=== PATIENT | female | born 2000 | race Caucasian/White ===

== ENCOUNTER → 2018-06-12 10:41 | Outpatient (CLI) | payer MEDICAID, SELFPAY ==
[2018-06-12 09:49] VITALS: BMI 20.9
[2018-06-12 10:59] LABS: Absolute Lymphocyte Count 1.47 X10^3/ul (0.83-4.51); Absolute Neutrophil Count 6.4 X10^3/uL (2.0-7.7); Basophil# 0.03 X10^3/uL; Basophil% 0.4 % (0-1); Eosinophil# 0.06 X10^3/uL; Eosinophils% 0.7 % (0-5); Hematocrit 41.4 % (37-47); Hemoglobin 14.1 g/dl (12.0-15.0); Lymphocyte # 1.47 X10^3/ul (4.0); Lymphocyte % 17.3 % (19-41); Mean Corp Hgb Conc 34.1 g/gl (32-36); Mean Corpuscular Hgb 29.9 pg (27.0-32.0); Mean Corpuscular Volume 87.7 fL (81-99); Monocyte# 0.51 X10^3/uL; Neutrophil # 6.41 X10^3/uL (2.7-7.7); Neutrophil % 75.4 % (47-70); Platelet Count 235 K/mm3 (150-450); RBC Distribution Width CV 12.6 % (11.6-14.6); RBC Distribution Width SD 39.5 fl (35.1-43.9); Red Blood Count 4.72 M/mm3 (4.2-5.4); White Blood Count 8.5 K/mm3 (4.4-11.0)
[2018-06-12 11:00] LABS: POSITIVE COUNT NO; POSITIVE DIFFERENTIAL NO; POSITIVE MORPHOLOGY NO
[2018-06-12 12:32] LABS: HIV - WCH Non-Reactive (Nonreactive); Rubella IgG 8.2 IU/mL
[2018-06-12 19:18] LABS: Neisserai gonorrhoeae by PCR Negative (Negative); Probe Check PASS
[2018-06-12 19:20] LABS: Chlamydia Trachomatis by PCR POSITIVE (Negative)
[2018-06-13 13:16] LABS: HEPATITIS B SURFACE AG Negative (Negative)
[2018-06-14 02:05] LABS: Rapid Plasmin Reagin (RPR) NONREACTIVE (NONREACTIVE)
== END ==
PROVIDERS: Nurse Practitioner Women's Health; Referring Provider Obstetrics & Gynecology; Visit Provider Obstetrics & Gynecology
DX: Z34.90 Encounter for supervision of normal pregnancy, unspecified, unspecified trimester (principal)
CPT/HCPCS: 36415; 85025; 86592; 86703; 86762; 86850; 86900; 87086; 87088; 87340; 87491; 87591

== ENCOUNTER → 2018-06-24 16:15 | Outpatient (CLI) | payer MEDICAID, SELFPAY ==
[2018-06-24 14:13] VITALS: BMI 20.9
== END ==
PROVIDERS: Referring Provider Obstetrics & Gynecology; Visit Provider Obstetrics & Gynecology
DX: Z34.90 Encounter for supervision of normal pregnancy, unspecified, unspecified trimester (principal)
CPT/HCPCS: 87086; 87088

== ENCOUNTER → 2018-07-11 | Outpatient (CLI) | payer MEDICAID, SELFPAY ==
[2018-06-24 14:13] VITALS: BMI 20.9
== END | disposition home or self-care (01) ==
LOC: LAB 10:53
PROVIDERS: Referring Provider Obstetrics & Gynecology; Visit Provider Obstetrics & Gynecology
DX: Z31.430 Encounter of female for testing for genetic disease carrier status for procreative management (principal)
CPT/HCPCS: 36415

== ENCOUNTER → 2018-07-22 | Outpatient (CLI) | payer MEDICAID, SELFPAY ==
[2018-07-22 13:42] VITALS: BMI 20.9
[2018-07-22 17:12] LABS: Chlamydia Trachomatis by PCR Negative (Negative); Neisserai gonorrhoeae by PCR Negative (Negative); Probe Check PASS; Sample Adequacy Control PASS; Specimen Processing Control PASS
== END | disposition home or self-care (01) ==
LOC: LABSPEC 15:21
PROVIDERS: Referring Provider Nurse Practitioner Women's Health; Visit Provider Nurse Practitioner Women's Health
DX: O98.819 Other maternal infectious and parasitic diseases complicating pregnancy, unspecified trimester (principal); A74.9 Chlamydial infection, unspecified; Z3A.00 Weeks of gestation of pregnancy not specified
CPT/HCPCS: 87491; 87591

== ENCOUNTER → 2018-09-24 | Outpatient (CLI) | payer MEDICAID, SELFPAY ==
[2018-09-16 11:18] VITALS: BMI 20.9
--- NOTE | 2018-09-24 12:09 | EKG12_ITS ---
Test Reason : DIZZINESS Blood Pressure : / mmHG Vent. Rate : 082 BPM Atrial Rate : 082 BPM P-R Int : 138 ms QRS Dur : 084 ms QT Int : 350 ms P-R-T Axes : 045 068 020 degrees QTc Int : 408 ms Normal sinus rhythm Nonspecific ST and T wave abnormality Abnormal ECG Confirmed by JOHN PENA, SUMI ([id number]), subeditor BREANNE MCCRACKEN ([id number]) on 09/25/2018 12:22:55 PM Referred By: Katie Bates Confirmed By:SUMI LOPEZ MD
== END | disposition home or self-care (01) ==
LOC: PSN 12:09
PROVIDERS: Referring Provider Nurse Practitioner Women's Health; Visit Provider Nurse Practitioner Women's Health
DX: O26.899 Other specified pregnancy related conditions, unspecified trimester (principal); R00.2 Palpitations; Z3A.00 Weeks of gestation of pregnancy not specified
CPT/HCPCS: 93005

== ENCOUNTER 2018-10-03 12:41 | Emergency (ER) | payer MEDICAID, SELFPAY ==
[2018-09-16 11:18] VITALS: BMI 20.9
[2018-10-03 12:42] VITALS: BP 129/92; PULSE 101; RESP 18; TEMP 36.5; O2SAT 98; BMI 23.8
--- NOTE | 2018-10-03 13:18 | EKG12_ITS ---
Test Reason : CP Blood Pressure : / mmHG Vent. Rate : 097 BPM Atrial Rate : 097 BPM P-R Int : 136 ms QRS Dur : 084 ms QT Int : 328 ms P-R-T Axes : 044 059 003 degrees QTc Int : 416 ms Normal sinus rhythm Nonspecific T wave abnormality Abnormal ECG Confirmed by RUBÉN PENA, CELESTINO ([id number]), science editor BREANNE MCCRACKEN ([id number]) on 10/04/2018 12:09:44 PM Referred By: ASAF/EMY Confirmed By:CELESTINO MONTANA MD
--- NOTE | 2018-10-03 13:18 | RAD_ITS ---
STUDY: X-RAY CHEST REASON FOR EXAM: Female, 18 years old. Chest pain and shortness of breath. TECHNIQUE: Single AP portable view of the chest. COMPARISON: None. FINDINGS: EKG electrodes are seen. The lungs are clear and expanded. There is no demonstrated pleural abnormality. Normal size heart. Normal mediastinum and kody. Normal visualized pulmonary arteries. Normal visualized aortic arch and descending thoracic aorta. Normal visualized thoracic spine. Normal visualized ribs, clavicles, and shoulders. There is no demonstrated abnormality of the visualized soft tissue structures of the upper abdomen. RAD/Chest 1 View (Portable) IMPRESSION: Normal x-ray examination of the chest. Electronically Signed: Fernie Davies, at 13:42 EDT , Service support ,
--- NOTE | 2018-10-03 13:20 | ED.DCSUM_ITS ---
History of Present Illness Chief Complaint: Chest Pain Informant: Patient Onset: Weeks - 2 Activity at onset: Rest - seen random; mostly non-exertional Timing: Intermittent Quality: Heaviness Location: Substernal Current Severity: Gone Maximum Severity: Severe Worsened By: Movement of Arm. Not Worsened By: Breathing Relieved By: Nothing - goes away after 10-20 min spontaneously Associated Symptoms: Lightheadedness, Palpitations - beating hard and fast Narrative: Patient 25 weeks and has been having these episodes for the last couple weeks. She had an EKG that looked abnormal and was referred to cardiology, she has an appointment 1 week from today with Dr. Augustin and has not seen him yet. She has no known heart problems. No recent calf pain or unilateral edema although she occasionally gets some mild swelling in her feet that is not there now. Symptoms recurrent episodes. She has had some headaches off and on there have been mild. Episodes are associated with shortness of breath, lightheadedness and near syncope, she has had no loss of consciousness yet. Also diffuse blurry vision, no focal neurologic symptoms or abdominal discomfort. No vaginal bleeding. Still feeling the baby move which also makes her feel nauseated often. Has discussed with her OB. Prior Similar Symptoms: No PE Risk Factors: Negative for: Recent Travel/Surgery, Recenet Immobilization, Prior DVT or PE, Cancer, OCP + Smoking + >/=35 Past Medical History - Allergies and Home Meds Allergies/Adverse Reactions: Allergies No Known Allergies Allergy (Verified 10/03/18 12:45) Primary Care Physician: Chinyere Su MD [Primary Care Provider] - Past Medical History: None Lives: With Family Smoking Status: Never smoker Drugs: None Review of Systems General: Reports: Malaise - Episodically. Denies: Chills, Fever, Sweats Eyes: Reports: Blurred Vision - bilaterally. Denies: Diplopia ENT: Denies: Rhinorrhea, Sore throat Cardiovascular: Reports: Chest pain, Palpitations, Heart racing Respiratory: Reports: Dyspnea. Denies: Cough, Dyspnea on exertion Gastrointestinal: Reports: Nausea - Episodically. Denies: Abdominal pain, Vomiting, Diarrhea, Melena, Hematochezia Genitourinary: Denies: Dysuria, Hematuria, Frequency Musculoskeletal: Reports: Swelling - Intermittent, feet only. Denies: Back pain, Extremity Pain Skin: Denies: Rash, Wounds Neurological: Denies: Headache, Weakness, Numbness Physical Exam Vital Signs/Narrative: Vital Signs Temp Pulse Resp BP Pulse Ox 10/03/18 12:42 97.7 F L 101 H 18 129/92 H 98 Inital Vital Signs reviewed: Yes General: Well nourished, Well developed, No Acute Distress Head: Normocephalic, Atraumatic Eyes: Perrl, EOMI ENT: Moist mucous membranes, No rhinorrhea Neck: Supple, Nontender, No lymphadenopathy, No JVD Cardiovascular: Regular rate, Regular rhythm, No murmurs, Normal S1, Normal S2, Tachycardia - mild Respiratory: No distress, CTA bilaterally, Chest nontender Abdomen: Soft, Nontender, Normal bowel sounds, - - Gravid uterus, just above the umbilicus Back: Nontender, Normal Inspection. Negative for: CVA tenderness Extremities: Nontender, No edema. Negative for: Calf Tenderness Skin: Normal color, No rash, No Trauma Neurological: Alert, Oriented x3, Cranial nerves II-XII grossly intact, Normal Strength, Normal Sensation Psychological: Normal affect, Normal Mood Diagnostic/Tx/Re-eval Impressions Chest X-Ray 10/03/18 13:18 IMPRESSION: Normal x-ray examination of the chest. Electronically Signed: Fernie Davies at 13:42 EDT , Service support , Chest CTA 10/03/18 15:11 IMPRESSION: The contrast bolus is suboptimal for detecting small or distal pulmonary emboli. No large or central pulmonary emboli are seen. No acute pulmonary findings. Electronically Signed: Jorge Alberto Cordova MD at 16:51 EDT Tel , Service support , 10/03/18 13:18 Chest 1 View (Portable) [RAD] Stat 10/03/18 15:11 CTA Chest W/WO Contrast [CT] Stat Laboratory Results 10/03/18 10/03/18 10/03/18 12:58 12:58 12:58 WBC 9.8 RBC 3.94 L Hgb 12.2 Hct 35.7 L MCV 90.6 MCH 31.0 MCHC 34.2 RDW 13.1 RDW Differential 43.7 Plt Count 199 MPV 10.3 Immature Gran % (Auto) 1.000 H Neut % (Auto) 77.6 H Lymph % (Auto) 16.7 L [place] % (Auto) 4.0 Eos % (Auto) 0.6 Baso % (Auto) 0.1 Absolute Neuts (auto) 7.6 Absolute Lymphs (auto) 1.64 Total Counted Not Reportable D-Dimer Quant (PE/DVT) 0.80 H* Sodium 138 Potassium 3.4 L Chloride 106 Carbon Dioxide 24.0 Anion Gap 8 BUN 9 Creatinine 0.66 Estim Creat Clear Calc 132.22 Est GFR (MDRD) Af Amer 146 Est GFR (MDRD) Non-Af 121 BUN/Creatinine Ratio 13.6 Glucose 121 H Calcium 8.5 Total Bilirubin 0.30 AST 9 L ALT 12 L Alkaline Phosphatase 42 L Troponin I < 0.015 Total Protein 6.9 Albumin 3.2 Globulin 3.7 Albumin/Globulin Ratio 0.9 Urine Color Urine Clarity Urine pH Ur Specific [place] Urine Protein Urine Glucose (UA) Urine Ketones Urine Occult Blood Urine Nitrite Urine Bilirubin Urine Urobilinogen Ur Leukocyte Esterase Urine RBC Urine WBC Ur Squamous Epith Cells Urine Bacteria Urine Mucus 10/03/18 12:58 WBC RBC Hgb Hct MCV MCH MCHC RDW RDW Differential Plt Count MPV Immature Gran % (Auto) Neut % (Auto) Lymph % (Auto) [place] % (Auto) Eos % (Auto) Baso % (Auto) Absolute Neuts (auto) Absolute Lymphs (auto) Total Counted D-Dimer Quant (PE/DVT) Sodium Potassium Chloride Carbon Dioxide Anion Gap BUN Creatinine Estim Creat Clear Calc Est GFR (MDRD) Af Amer Est GFR (MDRD) Non-Af BUN/Creatinine Ratio Glucose Calcium Total Bilirubin AST ALT Alkaline Phosphatase Troponin I Total Protein Albumin Globulin Albumin/Globulin Ratio Urine Color Yellow Urine Clarity Clear Urine pH 6.0 Ur Specific [place] 1.015 Urine Protein Negative Urine Glucose (UA) Normal Urine Ketones 150 H Urine Occult Blood Negative Urine Nitrite Negative Urine Bilirubin Negative Urine Urobilinogen Normal Ur Leukocyte Esterase 25 H Urine RBC 0 SEEN Urine WBC 0-5 SEEN Ur Squamous Epith Cells 0-5 SEEN Urine Bacteria 1+ Urine Mucus 0 SEEN - Rhythm Strip Rhythm Strip: Sinus Rhythm Rate: 97 Ectopy: None - EKG Initial EKG Interpretation: Sinus Rhythm, No Acute Injury Pattern, Non-Specific ST Changes - Diffusely Prior: Unchanged - Medical Decision Making D-dimer was nonspecifically elevated, the rest of her labs are unremarkable, her blood pressure remained stable. No sign of preeclampsia here. Her EKG shows some lateral nonspecific T wave abnormalities, with no acute other abnormalities, this is similar to the EKG she had recently for which she was referred to cardiology. Given her elevated d-dimer and nonspecific nature of her thoracic symptoms, I thought it prudent to rule out pulmonary embolism, especially given her . We discussed risks and benefits of CT angiography, she was amenable to it, it was performed and showed no central PE although the IV contrast bolus was suboptimal and was unable to rule out a peripheral PE. With the degree of symptoms she has been having which is near syncope and racing heartbeat, my suspicion is that a pulmonary embolus and a larger vessel would be present if it was causing the symptoms. She had no telemetry events or other symptoms while in the emergency department. I think it is safe for her to be discharged to follow-up with cardiology in 1 week as scheduled. We discussed sitting or lying down if she gets symptoms. I also discussed w/ Dr. Augustin, who requested that we have a 48-hr Holter placed prior to discharge, then she can follow up as scheduled next week. ED Disposition - Plan for ED Patient: Disposition: Home or Assisted Living Diagnosis: Near syncope, Intermittent chest pain, Second trimester , Palpitations Instructions: CHEST PAIN, Uncertain Cause (Child), Palpitations Referrals: Chinyere Su MD [Primary Care Provider] - Abran Augustin MD [STAFF PHYSICIAN] - Keep Ros appointment
[2018-10-03 13:40] LABS: Mucous, Urine 0 SEEN /hpf (<or=2+); Red Blood Cells-Urine 0 SEEN /hpf (0-5)
[2018-10-03 13:42] LABS: Color, Urine Yellow (Yellow); Glucose, Dipstick Normal (Normal); Leukocyte Esterase-Dipstick 25 /ul (Negative); Nitrite-Dipstick Negative (Negative); Occult Blood-Urine Negative /ul (Negative); Protein-Dipstick Negative (Negative); Specific Gravity, Urine 1.015 (1.002-1.030); Urine Bilirubin Dipstick Negative (Negative); Urine Clarity Clear (Clear); Urine Urobilinogen Normal (Normal)
[2018-10-03 13:45] LABS: Absolute Lymphocyte Count 1.64 X10^3/ul (0.83-4.51); Absolute Neutrophil Count 7.6 X10^3/uL (2.0-7.7); Basophil# 0.01 X10^3/uL; Basophil% 0.1 % (0-1); Eosinophil# 0.06 X10^3/uL; Eosinophils% 0.6 % (0-5); Hematocrit 35.7 % (37-47); Hemoglobin 12.2 g/dl (12.0-15.0); Lymphocyte # 1.64 X10^3/ul (4.0); Lymphocyte % 16.7 % (19-41); Mean Corp Hgb Conc 34.2 g/gl (32-36); Mean Corpuscular Volume 90.6 fL (81-99); Mean Platelet Vol. 10.3 fl (6.2-12.0); Monocyte# 0.39 X10^3/uL; Neutrophil % 77.6 % (47-70); Platelet Count 199 K/mm3 (150-450); RBC Distribution Width CV 13.1 % (11.6-14.6); RBC Distribution Width SD 43.7 fl (35.1-43.9); Red Blood Count 3.94 M/mm3 (4.2-5.4); White Blood Count 9.8 K/mm3 (4.4-11.0)
[2018-10-03 13:46] LABS: POSITIVE COUNT NO; POSITIVE DIFFERENTIAL NO; POSITIVE MORPHOLOGY NO
[2018-10-03 13:48] LABS: Ketone-Dipstick 150 mg/dl (Negative)
[2018-10-03 13:49] LABS: Bacteria 1+ /hpf (None Seen); Squamous Epithelial Cells - UA 0-5 SEEN /hpf (5-10); White Blood Cells 0-5 SEEN /hpf (0-5)
[2018-10-03 13:54] LABS: ALB/GLOB Ratio 0.9 RATIO (0.9-2.4); AST(SGOT) 9 U/L (15-37); Alanine Aminotransfer ALT/SGPT 12 U/L (13-56); Albumin, Serum 3.2 g/dL (3.2-5.0); Alkaline Phosphatase 42 U/L (45-117); Anion Gap 8 (5-15); BUN 9 mg/dL (7-18); BUN/Creat Ratio 13.6 RATIO (10-20); Calcium,Total 8.5 mg/dL (8.5-10.1); Chloride 106 mmol/L (98-107); Creatinine, Serum 0.66 mg/dL (0.55-1.02); EST Glomerular Filtration Rate 121 mL/min (>60); Est Glom Filt Rate - Afr Amer 146 mL/min (>60); Estimated Creatinine Clearance 132.22 ml/min; Globulin 3.7 g/dL (2.2-4.2); Glucose 121 mg/dL (74-106); Potassium 3.4 mmol/L (3.5-5.1); Protein, Total 6.9 g/dL (6.4-8.2); Sodium Level 138 mmol/L (136-145)
[2018-10-03 14:06] VITALS: BP 119/75; PULSE 95; RESP 21; O2SAT 97
--- NOTE | 2018-10-03 14:06 | ED.RN ---
LAB CALL WITH CRITICAL D-DIMER VALUE OF 0.80. VERBALLY REPORTED TO DR. QUEVEDO.
[2018-10-03 15:00] VITALS: BP 114/55; PULSE 94; RESP 20; O2SAT 98
--- NOTE | 2018-10-03 15:11 | CT_ITS ---
STUDY: CTA CHEST REASON FOR EXAM: Female, 18 years old. Chest pain, SOB, elevated d-dimer RADIATION DOSAGE (If Supplied By Facility): CTDIvol = ( 11.68 ) mGy, DLP = ( 267.15 ) mGycm TECHNIQUE: The examination was performed with the intravenous administration of 100 IV Isovue 300. Post-processing of the angiographic images was performed, with multiplanar reformation and 3D reconstruction. Individualized dose optimization techniques were used for this CT. COMPARISON: None. FINDINGS: There is limited enhancement of the main pulmonary artery and right and left pulmonary arteries. There is limited enhancement of the bilateral peripheral pulmonary arteries. The contrast bolus is suboptimal for detecting small or distal pulmonary emboli. No large or central pulmonary emboli are seen. Normal thoracic aorta and visualized great vessels. There is no demonstrated aortic dissection. Normal heart and pericardium. Normal mediastinum. Normal hilar regions. Normal visualized trachea and bronchi. The lungs are well expanded. Normal pulmonary parenchyma. Normal pleura. Normal chest wall structures. Normal osseous structures. Normal visualized upper abdomen. CT/CTA Chest W/WO Contrast IMPRESSION: The contrast bolus is suboptimal for detecting small or distal pulmonary emboli. No large or central pulmonary emboli are seen. No acute pulmonary findings. Electronically Signed: Jorge Alberto Cordova MD at 16:51 EDT Tel , Service support ,
[2018-10-03 16:00] VITALS: BP 113/82; PULSE 88; RESP 14; O2SAT 98
[2018-10-03 18:02] VITALS: BP 99/76; PULSE 84; RESP 16; O2SAT 98
[2018-10-03 18:05] VITALS: BP 99/76; PULSE 86; RESP 18; O2SAT 97
== END 2018-10-03 18:19 | disposition home or self-care (01) ==
PROVIDERS: Emergency Provider Emergency Medicine; Family Provider Obstetrics & Gynecology; PCP Obstetrics & Gynecology
DX: O26.892 Other specified pregnancy related conditions, second trimester (principal); R55 Syncope and collapse; R07.9 Chest pain, unspecified; R00.2 Palpitations; Z3A.25 25 weeks gestation of pregnancy
CPT/HCPCS: 71045; 71275; 80053; 81001; 84484; 85025; 85379; 93005; 93225; 93226; 96360; 96361; 99284; J7030; Q9967

== ENCOUNTER → 2018-10-03 18:13 | Outpatient (CLI) | payer MEDICAID, SELFPAY ==
[2018-10-03 12:42] VITALS: BMI 23.8
== END ==
PROVIDERS: Family Provider Obstetrics & Gynecology; PCP Obstetrics & Gynecology; Referring Provider Internal Medicine Cardiovascular Disease; Visit Provider Internal Medicine Cardiovascular Disease
DX: R00.2 Palpitations (principal)
CPT/HCPCS: 93225; 93226

== ENCOUNTER → 2018-10-15 | Outpatient (CLI) | payer MEDICAID, SELFPAY ==
[2018-10-15 14:23] VITALS: BMI 23.8
[2018-10-15 15:46] LABS: Absolute Lymphocyte Count 1.64 X10^3/uL (0.83-4.51); Absolute Neutrophil Count 7.8 X10^3/uL (2.0-7.7); Basophil# 0.05 X10^3/uL; Basophil% 0.5 % (0-1); Eosinophil# 0.09 X10^3/uL; Eosinophils% 0.9 % (0-5); Hematocrit 34.4 % (37-47); Hemoglobin 11.9 g/dL (12.0-15.0); Lymphocyte # 1.64 X10^3/ul (4.0); Lymphocyte % 15.8 % (19-41); Mean Corp Hgb Conc 34.6 g/dL (32-36); Mean Corpuscular Volume 92.5 fL (81-99); Mean Platelet Vol. 10.4 fl (6.2-12.0); Monocyte# 0.51 X10^3/uL; Monocyte% 4.9 % (0-10); NRBC Flagged by Analyzer 0 % (0-5); Neutrophil # 7.84 X10^3/uL (2.7-7.7); Neutrophil % 75.6 % (47-70); Platelet Count 188 K/mm3 (150-450); RBC Distribution Width CV 12.9 % (11.6-14.6); RBC Distribution Width SD 43.1 fl (35.1-43.9); Red Blood Count 3.72 M/mm3 (4.2-5.4); White Blood Count 10.4 K/mm3 (4.4-11.0)
[2018-10-15 16:22] LABS: Glucose Challenge Gest 1H 50g 90 mg/dL (70-140)
== END | disposition home or self-care (01) ==
LOC: LAB 15:03
PROVIDERS: Family Provider Nurse Practitioner Family; PCP Nurse Practitioner Family; Referring Provider Obstetrics & Gynecology; Visit Provider Obstetrics & Gynecology
DX: Z34.00 Encounter for supervision of normal first pregnancy, unspecified trimester (principal)
CPT/HCPCS: 36415; 82950; 85025

== ENCOUNTER → 2018-10-24 | Outpatient (CLI) | payer MEDICAID, SELFPAY ==
[2018-10-10 09:28] VITALS: BMI 23.8
[2018-10-15 14:23] VITALS: BMI 23.8
--- NOTE | 2018-10-24 13:49 | ECHOD_ITS ---
Reason For Study: ARRHYTHMIA Procedure This was a 2D Doppler, Color Flow transthoracic echocardiogram. The exam was of adequate technical quality. Exam performed in department. Left Ventricle Normal LV size. Left ventricular systolic function is normal. The estimated ejection fraction is 65 %. No evidence for diastolic dysfunction. No regional wall motion abnormalities noted. Right Ventricle Normal RV size. Normal systolic function. Atria Normal left atrium. Normal right atrium. No doppler evidence for ASD. Mitral Valve There is no mitral annular calcification. Mild diffuse mitral valve thickening. Trivial mitral valve insufficiency. Tricuspid Valve Normal tricuspid valve. Trivial tricuspid valve insufficiency. Right ventricular systolic pressure estimated to be 18 mmHg. Aortic Valve Trisinus/trileaflet aortic valve. Normal aortic valve. Pulmonic Valve The pulmonic valve is not well visualized. Great Vessels Normal sized aortic root. Pericardium/Pleural No pericardial effusion. MMode/2D Measurements & Calculations LVIDd: 4.7 cm IVSd: 0.76 cm Ao root diam: 2.1 cm LVIDs: 3.2 cm LVPWd: 0.84 cm RVDd: 3.1 cm FS: 32.2 % LAV(MOD-bp): 44.7 ml LA A4 area: 15.0 cm2 LA dimension(2D): 3.3 cm LAV(MOD-bp) Indexed: 24.6 ml/m2 LAV(MOD-sp2): 46.6 ml LAV(MOD-sp4): 39.1 ml RA A4 area: 11.1 cm2 Time Measurements MV dec time: 0.15 sec Doppler Measurements & Calculations MV E max timo: 75.6 cm/sec Lat Peak E' Timo: 12.5 cm/sec Med Peak E' Timo: 9.9 cm/sec MV A max timo: 53.7 cm/sec E/E' lat: 6.0 E/E' med: 7.7 MV E/A: 1.4 Ao V2 max: 145.6 cm/sec LV V1 max: 87.6 cm/sec TR max timo: 192.5 cm/sec Ao max P.5 mmHg LV V1 max P.1 mmHg TR max P.9 mmHg Interpretation Summary Left ventricular systolic function is normal. The estimated ejection fraction is 65 %. Mild diffuse mitral valve thickening. Trivial mitral valve insufficiency. Trivial tricuspid valve insufficiency. Right ventricular systolic pressure estimated to be 18 mmHg. No evidence for diastolic dysfunction. Ordering Physician: Abran Augustin Referring Physician: DEVONTE CEJA Performed By: Irasema Sierra, MAURI, RVT
== END | disposition home or self-care (01) ==
LOC: CVS 13:49
PROVIDERS: Family Provider Nurse Practitioner Family; PCP Nurse Practitioner Family; Referring Provider Internal Medicine Cardiovascular Disease; Visit Provider Internal Medicine Cardiovascular Disease
DX: R94.31 Abnormal electrocardiogram [ECG] [EKG] (principal); R00.2 Palpitations; R07.9 Chest pain, unspecified
CPT/HCPCS: 93306

== ENCOUNTER → 2018-12-18 | Outpatient (CLI) | payer MEDICAID, SELFPAY ==
[2018-12-18 10:38] VITALS: BMI 23.8
--- NOTE | 2018-12-18 11:45 | US_ITS ---
STUDY: OBSTETRICAL ULTRASOUND - BIOPHYSICAL PROFILE REASON FOR EXAM: Female, 18 years old well being. LMP: April 13, 2018 PRIOR ULTRASOUND: None. TECHNIQUE: Transabdominal TECHNICAL QUALITY: Adequate. FINDINGS: There is a single intrauterine fetus. The fetus is in a breech presentation. There is demonstrated cardiac activity with a heart rate of 130 bpm. There is a normal amniotic fluid volume. The largest amniotic fluid pocket measures 5.8 cm. The amniotic fluid index (ARNOLDO) is 19.5 cm. The placenta is anterior in location and is not low lying. There are Grade 1 placental changes. Age by LMP: 35 weeks, 4 days. NANCY by LMP: January 18, 2019. BIOPHYSICAL PROFILE: Breathing Movements (FBM): 2 Gross Body Movements (GBM): 2 Tone (FT): 2 Amniotic Fluid Volume (AFV): 2 TOTAL SCORE: 8 / 8 US/Biophysical Prof W/O Non Stres IMPRESSION: Normal biophysical profile of 8/8. Electronically Signed: Fernie Davies, at 12:21 EDT , Service support ,
== END | disposition home or self-care (01) ==
LOC: OPUS 11:44
PROVIDERS: Family Provider Nurse Practitioner Family; PCP Nurse Practitioner Family; Referring Provider Obstetrics & Gynecology; Visit Provider Obstetrics & Gynecology
DX: O28.8 Other abnormal findings on antenatal screening of mother (principal); Z3A.00 Weeks of gestation of pregnancy not specified
CPT/HCPCS: 76819

== ENCOUNTER → 2018-12-27 | Outpatient (CLI) | payer MEDICAID, SELFPAY ==
[2018-12-27 13:34] VITALS: BMI 27.3
--- NOTE | 2018-12-27 16:28 | US_ITS ---
STUDY: SECOND AND THIRD TRIMESTER OBSTETRICAL ULTRASOUND-LIMITED REASON FOR EXAM: Female, 18 years old growth check LMP: 04/13/2018 TECHNIQUE: Transabdominal TECHNICAL QUALITY: Adequate. PRIOR ULTRASOUND: 12/18/2018 FINDINGS: There is a single intrauterine fetus. The fetus is in a cephalic presentation. There is demonstrated cardiac activity with a heart rate of 132 bpm. There is a normal amniotic fluid volume. The largest amniotic fluid pocket measures 8.8 cm. The amniotic fluid index (ARNOLDO) is 13.72 cm. The placenta is anterior in location and is not low lying. There are Grade 1 placental changes. The cervix measures 3.9 cm in length. The adnexal regions are not visualized. BIOMETRY: BPD: 8.81 cm: 35 weeks, 5 days HC: 32.72 cm: 37 weeks, 1 days AC: 30.95 cm: 35 weeks, 0 days FL: 6.72 cm: 34 weeks, 4 days age by current US: 35 weeks, 5 days. NANCY by current US: 01/26/2019. Estimated weight: 2595 grams, +/- 379 grams, 15 %. Age by LMP: 36 weeks, 6 days. NANCY by LMP: 01/18/2019. US/OB Limited With Biometrics IMPRESSION: Single live intrauterine at 35 weeks, 5 days by current ultrasound with NANCY of 01/26/2019. Heart rate 132 bpm. No suspicious sonographic findings. Previous exam was a biophysical profile and did not include current dating. Estimated weight is only in the 15th percentile. Electronically Signed: Gianni Snell MD at 9:56 EDT , Service support ,
[2018-12-27 19:22] LABS: Chlamydia Trachomatis by PCR Negative (Negative); Neisserai gonorrhoeae by PCR Negative (Negative); Probe Check PASS; Sample Adequacy Control PASS; Specimen Processing Control PASS
== END | disposition home or self-care (01) ==
PROVIDERS: Family Provider Nurse Practitioner Family; PCP Nurse Practitioner Family; Referring Provider Obstetrics & Gynecology; Visit Provider Obstetrics & Gynecology
DX: O98.812 Other maternal infectious and parasitic diseases complicating pregnancy, second trimester (principal); Z3A.36 36 weeks gestation of pregnancy
CPT/HCPCS: 76816; 87081; 87491; 87591

== ENCOUNTER → 2019-01-13 | Outpatient (CLI) | payer MEDICAID, SELFPAY ==
[2019-01-09 13:19] VITALS: BMI 28.6
--- NOTE | 2019-01-13 13:43 | US_ITS ---
STUDY: SECOND AND THIRD TRIMESTER OBSTETRICAL ULTRASOUND REASON FOR EXAM: Female, 18 years old. growth TECHNIQUE: Transabdominal TECHNICAL QUALITY: Adequate. PRIOR ULTRASOUND: 12/27/2018 FINDINGS: There is a single intrauterine fetus. The fetus is in a cephalic presentation. There is demonstrated cardiac activity with a heart rate of 138 bpm. There is a normal amniotic fluid volume. The largest amniotic fluid pocket measures 4.6 cm. The amniotic fluid index (ARNOLDO) is 12.3 cm. The placenta is anterior in location and is not low lying. There are Grade 2 placental changes. The cervix is not well visualized. BIOMETRY: BPD: 8.99 cm: 36 weeks, 2 days HC: 33.17 cm: 37 weeks, 5 days AC: 33.44 cm: 37 weeks, 2 days FL: 7.17 cm: 36 weeks, 5 days CI: 77.82 FL/BPD: 21.44 FL/HC: 79.78 HC/AC: 0.99 age by current US: 37 weeks, 0 days. NANCY by current US: 02/03/2019. Estimated weight: 3127 grams, +/- 460 grams, 22 %. age by prior US: 38 weeks, 1 days. NANCY by prior US: 01/26/2019. Age by LMP: 39 weeks, 2 days. NANCY by LMP: 01/18/2019. US/OB Limited With Biometrics IMPRESSION: Single live intrauterine gestation at approximately 37 weeks and 0 days based on the current ultrasound. Electronically Signed: Tapan Carolina, at 13:56 EDT Tel , Service support ,
== END | disposition home or self-care (01) ==
LOC: OPUS 13:41
PROVIDERS: Family Provider Nurse Practitioner Family; PCP Nurse Practitioner Family; Referring Provider Obstetrics & Gynecology; Visit Provider Obstetrics & Gynecology
DX: O26.849 Uterine size-date discrepancy, unspecified trimester (principal); Z3A.00 Weeks of gestation of pregnancy not specified
CPT/HCPCS: 76816

== ENCOUNTER 2019-01-17 12:25 | Inpatient (IN) | payer MEDICAID, SELFPAY ==
[2019-01-17 10:07] VITALS: BMI 28.6
[2019-01-17 11:08] VITALS: BMI 29.7
[2019-01-17 11:25] LABS: Hematocrit 34.2 % (37-47); Hemoglobin 11.6 g/dL (12.0-15.0); Mean Corp Hgb Conc 33.9 g/dL (32-36); Mean Corpuscular Hgb 31.4 pg (27.0-32.0); Mean Corpuscular Volume 92.4 fL (81-99); Mean Platelet Vol. 11.2 fl (6.2-12.0); Platelet Count 167 K/mm3 (150-450); RBC Distribution Width CV 13.2 % (11.6-14.6); RBC Distribution Width SD 44.7 fl (35.1-43.9); White Blood Count 10.8 K/mm3 (4.4-11.0)
[2019-01-17 11:30] LABS: Protein, Urine (Random) 15.7 mg/dL (<11.9); Protein:Creat Ratio 152 mg/g CRE (0-200)
[2019-01-17 11:39] LABS: AST(SGOT) 11 U/L (15-37); Alanine Aminotransfer ALT/SGPT 13 U/L (13-56); Creatinine, Serum 0.75 mg/dL (0.55-1.02); EST Glomerular Filtration Rate 105 mL/min (>60); Est Glom Filt Rate - Afr Amer 127 mL/min (>60); Estimated Creatinine Clearance 112.01 ml/min; Uric Acid 5.2 mg/dL (2.6-6.0)
[2019-01-17 11:49] LABS: Partial Thromboplast Time 26.1 Seconds (24.1-36.2)
[2019-01-17] MEDS: Lactated Ringers 1,000 ML 50 ML IV (12:35)
[2019-01-17] MEDS: Lactated Ringers 500 ML 999 ML IV ×4 (12:56→22:47)
[2019-01-17] MEDS: 0.9% Normal Saline 100 ML IV.SOLN. IY (13:19)
[2019-01-17] MEDS: Oxytocin 30 units/NS 500 ml 30 UNITS/500 ML IV.SOLN IV (14:50)
--- NOTE | 2019-01-17 16:12 | PCM.HP.OB ---
- Problem List (1) Non-reactive NST (non-stress test) Status: Acute (2) Elevated blood pressure affecting in third trimester, antepartum Status: Acute Comment: 01/17 check labs and serial bps on l and d (3) Rubella non-immune status, antepartum Status: Acute Comment: avoid and MMR (4) Chlamydia infection affecting Status: Acute Qualifiers: Comment: 06/13 treated. Repeat negative. 36 wk-negative (5) Status: Acute Qualifiers: Comment: NT normal and seq screen planned. Carrier testing negative Normal anatomy & growth (6) Supervision of normal first Status: Acute Qualifiers: Comment: PRR NANCY 01/18/19 girl Wrynn BF:Jules History Date of Admission: 01/17/19 Final NANCY: 01/18/19 Gestational age: 39 Weeks and 6 Days History of this : This is a 18 year-old, , at 39 weeks gestational age presents for routine visit but had elevated bps and was evaluated on l and d. she was noted to have a nonreactive tracing with periods of minimal variability so the decision to induce was made. Medical History: Medical History (Last Reviewed 01/17/19 @ 10:07 by Toyin Loja) Abnormal EKG (Resolved) R94.31 Palpitations (Resolved) R00.2 Allergies No Known Allergies Allergy (Verified 01/17/19 10:06) Home Medications: Home Medications vitamin,calcium,[id number] acid tablet 1 tab PO DAILY 10/08/18 promethazine 12.5 mg tablet 12.5 mg PO Q6H PRN 10/10/18 Smoking Status: Never smoker Alcohol: None Number of Fetus(es): 1 NST - FHR Rate Baby A Baseline: 150 Variability:: Minimal Accelerations:: 10 x 10 Decelerations:: None NST Reactive:: Non-Reactive FHR Category:: Category II Uterine Activity:: none History Past Pregnancies: Past Pregnancies Delivery Date Name GA/Weeks Outcome Route Weight Infant Gender Labor Length Anesthesia Delivery Location Provider FOB Labs: Mom's Current Diagnoses Unspecified maternal hypertension, third trimester 01/17/19 Mom's Labs & Results 01/17/19 01/17/19 01/17/19 10:20 11:05 11:05 WBC 10.8 RBC 3.70 L Hgb 11.6 L Hct 34.2 L MCV 92.4 MCH 31.4 MCHC 33.9 RDW Std Deviation 44.7 H RDW Coeff of Tim 13.2 Plt Count 167 MPV 11.2 Neut % (Auto) Pending Absolute Neuts (auto) Pending PT 13.0 INR 1.0 APTT 26.1 Creatinine Estim Creat Clear Calc Est GFR (MDRD) Af Amer Est GFR (MDRD) Non-Af Uric Acid AST ALT U Random Total Protein 15.7 H Urine Creatinine 103.00 Protein/Creatinin Ratio 152 Blood Type Antibody Screen 01/17/19 01/17/19 11:05 11:05 WBC RBC Hgb Hct MCV MCH MCHC RDW Std Deviation RDW Coeff of Tim Plt Count MPV Neut % (Auto) Absolute Neuts (auto) PT INR APTT Creatinine 0.75 Estim Creat Clear Calc 112.01 Est GFR (MDRD) Af Amer 127 Est GFR (MDRD) Non-Af 105 Uric Acid 5.2 AST 11 L ALT 13 U Random Total Protein Urine Creatinine Protein/Creatinin Ratio Blood Type A POSITIVE Antibody Screen NEGATIVE Course Did the patient receive Yes care? Labs Blood Type: A RH: POSITIVE RPR/VDRL/Syphilis Nonreactive Rubella status Equivocal HbSAg Negative Date Done: 06/12/18 Chlamydia Negative Gonorrhea Negative HIV/AIDS Not done Group B Strep: Negative Current Obstetrical History Gestational Diabetes No Incompetent Cervix No Infertility No IUGR No Macrosomia No Hypertension/Pre-eclampsia No Placenta Previa/Abruption No PTL/PROM No Uterine anomaly No Oligohydramnios No Polyhydramnios No Multiple gestation No Past Medical History Asthma No Diabetes No Hypertension No Heart disease No Mitral valve prolapse No Neurologic/Seizure disorder/ No Migraines Kidney disease No Liver disease No Varicosities No Clotting disorders/Hx of DVT No Thyroid Dysfunction No Other medical diseases No Psychiatric disorders No Major trauma No Abnormal PAP smear No Sleep apnea No Mammogram in the last 2 years No Social History Marital Status: SINGLE Alleged father Jules Hx Smoking No Smoking Status Never smoker Expected Infant Delivery Method: Spontaneous Vaginal Review of Systems Constitutional: Denies: Fever, Malaise Eyes: Denies: Blurred vision, Vision Change HEENT: Denies: Head Aches, Visual Changes Cardiovascular: Denies: Chest Pain, Palpitations Respiratory: Denies: Cough, Shortness of Breath, Wheezing Gastrointestinal: Denies: Abdominal Pain, Diarrhea, Nausea, Vomiting Genitourinary: Denies: Dysuria, Hematuria Musculoskeletal: Denies: Joint Pain, Muscle pain Skin: Denies: Lesions, Rash Neurological: Denies: Blurred vision, Focal weakness, Headaches Psychiatric: Denies: Anxiety, Depression Endocrine: Denies: Heat/ Cold Intolerance Hematologic/ Lymphatic: Denies: Easy Bruising, Easy Bleeding Physical Exam General: Alert, Cooperative, No apparent distress HEENT: Atraumatic, Normocephalic. Negative for: Thyromegaly, Lymphadenopathy Cardiovascular: Regular rate Lungs: Normal air movement Abdomen: Soft, Non Tender, Gravid Neurological: Deep Tendon Reflexes 2+/4 and Symmetrical, Neuro grossly intact. Negative for: Clonus FRONT LINE LEADER: Normal external genitalia. Negative for: Vulvar lesions Estimated gestational size: Appropriate for gestational size Presentation: Cephalic Assessment/Plan All Active Problems (Last Reviewed 01/17/19 @ 10:07 by Toyin Loja) Non-reactive NST (non-stress test) (Acute) Elevated blood pressure affecting in third trimester, antepartum (Acute) Rubella non-immune status, antepartum (Acute) Chlamydia infection affecting (Acute) (Acute) Supervision of normal first (Acute) Abnormal EKG (Resolved) Palpitations (Resolved) Subchorionic hemorrhage in first trimester (Resolved) This is a 18 year-old, at 39 weeks gestational age presents iol abnormal testing plan fb pit IOL gbs neg rubella non immune.
[2019-01-17 17:11] LABS: Differential Indicated MANUAL DIFF
[2019-01-17 17:15] LABS: Eosinophil 1 % (0-5); Lymphocyte 22 % (19-41); Monocyte 7 % (0-10); Neutrophil-Band 1 % (0-5); Neutrophil-Segmented 69 % (47-70); Platelet Estimate ADEQUATE (ADEQ); Red Cell Morphology NORM C+C NORMAL (NORM C&C); Total Cells Counted 100 (MANUAL DIFF)
[2019-01-17 17:19] LABS: Absolute Lymphocyte Count 2.38 X10^3/uL (0.83-4.51); Absolute Neutrophil Count 7.6 X10^3/uL (2.0-7.7)
[2019-01-17] MEDS: Acetaminophen 325 MG Tablet PO (17:27)
[2019-01-17] MEDS: Ondansetron 4 MG/2 ML Vial IV (18:39)
[2019-01-17] MEDS: 0.9% Saline Lock 10 ML Syringe IV (18:39)
[2019-01-17] MEDS: fentaNYL-bupivacaine (epidural) 100 ML BAG EPIDURAL (23:57)
[2019-01-18] MEDS: Acetaminophen 325 MG Tablet PO (01:41)
[2019-01-18] MEDS: Oxytocin 30 units/NS 500 ml 30 UNITS/500 ML IV.SOLN 334 UNITS IV (02:25)
--- NOTE | 2019-01-18 02:39 | PCM.OPRPT ---
Problem List (1) Non-reactive NST (non-stress test) Status: Acute (2) Elevated blood pressure affecting in third trimester, antepartum Status: Acute Comment: 01/17 check labs and serial bps on l and d (3) Rubella non-immune status, antepartum Status: Acute Comment: avoid and MMR (4) Chlamydia infection affecting Status: Acute Qualifiers: Comment: 06/13 treated. Repeat negative. 36 wk-negative (5) Status: Acute Qualifiers: Comment: NT normal and seq screen planned. Carrier testing negative Normal anatomy & growth (6) Supervision of normal first Status: Acute Qualifiers: Comment: PRR NANCY 01/18/19 girl Wrynn BF:Jules Vaginal Delivery Maternal Presentation: Medically Indicated Induction iol abnormal testing Method of Induction: Kuo Bulb Amniotic Membrane Rupture Type: Artificial Final NANCY: 01/18/19 Gestational age: 40 Weeks and 0 Days Date of Procedure: 01/18/19 Pre-Operative Diagnosis: iol nonreactive NST Post-Operative Diagnosis: same Surgery/ Procedure Performed: Spontaneous Vaginal Delivery Type of Anesthesia: Epidural Description of Procedure: Patient began pushing and delivered the head in the JOSE presentation. The head was delivered atraumatically . The anterior and posterior shoulders delivered without complication followed by the rest of the and the was placed on the maternal abdomen. Delayed cord clamping was employed for approximately 60 seconds. Cord was clamped and cut and gentle traction was applied to the cord and the placenta delivered spontaneously immediately following it was noted to be intact with three-vessel cord. The perineum and vagina were inspected and noted to have a small first-degree perineal laceration that was repaired in the usual fashion with 3-0 Vicryl Rapide. EBL was 200 cc. Patient and infant tolerated delivery well. Presentation: JOSE Placental Delivery Description: Spontaneous Placenta Disposition: [facility] Cord Vessel Description: 3 Vessels Cord Entanglement: None Drain: Kuo to straight drain Estimated Blood Loss: 200 A gender: Female Episiotomy Description: None Laceration: Perineal Extension/lac, 1st degree Medications given after delivery: IV Pitocin Complications: None
[2019-01-18 04:00] VITALS: BP 104/65; PULSE 93; RESP 18; TEMP 37.3
[2019-01-18 10:00] VITALS: BP 112/80; PULSE 93; RESP 16; TEMP 36.9
[2019-01-18] MEDS: Naproxen 250 MG Tablet 500 MG PO (13:17)
[2019-01-18 14:00] VITALS: BP 116/78; PULSE 80; RESP 16; TEMP 36.8
[2019-01-18 18:00] VITALS: BP 123/86; PULSE 73; RESP 16; TEMP 37.1
--- NOTE | 2019-01-18 18:55 | NURSING ---
[age] c/o discomfort in midsternal chest area. Skin pink, warm, dry. Denies shortness of breath, nausea, abdominal pain. States she tired. BP 110/72, P 71. Instructed to let us know if she has increased pain or other symptoms. MMR site without redness. Stated the discomfort in her chest started prior to admin of MMR.
[2019-01-18 20:13] VITALS: BP 117/87; PULSE 77; RESP 16; TEMP 36.5; O2SAT 98
[2019-01-18] MEDS: Acetaminophen 500 MG Tablet 1000 MG PO (20:24)
[2019-01-18 23:29] VITALS: BP 108/65; PULSE 77; RESP 18; TEMP 36.6; O2SAT 97
[2019-01-19 03:50] VITALS: BP 95/45; PULSE 68; RESP 14; TEMP 36.6
--- NOTE | 2019-01-19 03:52 | NURSING ---
Patient denies dizziness or lightheadedness. Bleeding WNL.
[2019-01-19 07:35] VITALS: BP 119/76; PULSE 78; RESP 16; TEMP 36.9; O2SAT 98
--- NOTE | 2019-01-19 10:44 | PCM.PN.OB ---
Patient Problems: Active and Suspected Problems (Last Reviewed 01/17/19 @ 10:07 by Toyin Loja) Non-reactive NST (non-stress test) (Acute) Subjective: doing well no complaints pain controlled no CP SOB N V ambulating well tolerating po lochia moderate, going well - Physical Exam Vitals/I&O's: Vital Signs Temp Pulse Resp BP Pulse Ox 98.5 F 78 16 119/76 98 01/19/19 07:35 01/19/19 07:35 01/19/19 07:35 01/19/19 07:35 01/19/19 07:35 Oxygen Delivery Method Room Air Weight: 184 lb 1.376 oz Body Mass Index (BMI) 29.7 Intake and Output for Last 24 Hours 01/17/19 01/18/19 01/19/19 23:59 23:59 23:59 Intake Total 2965.21 / 2965.21 423.47 / 423.47 Output Total 800 / 800 450 / 450 Balance 2165.21 / 2165.21 -26.53 / -26.53 General: Alert, Oriented x3 Current Medications Acetaminophen (Tylenol) 1,000 mg PO Q8H PRN PRN PRN Reason: Pain Score 1-310 Last Admin: 01/18/19 20:24 Dose: 1,000 mg Documented by: Bisacodyl (Dulcolax) 10 mg RECTAL UD PRN PRN Reason: If no BM Dibucaine (Dibucaine) 1 applic TOPICAL TID PRN PRN; Protocol PRN Reason: Discomfort Hydrocortisone (Hytone) 1 applic TOPICAL TID PRN PRN; Protocol PRN Reason: Discomfort Methylergonovine Maleate (Methergine) 0.2 mg IM X1 PRN PRN Reason: Excess bleeding/uterine atony Naproxen (Naprosyn) 500 mg PO Q8H PRN PRN PRN Reason: Pain Score 1-3/10 Last Admin: 01/18/19 13:17 Dose: 500 mg Documented by: Ondansetron HCl (Zofran) 4 mg IV Q4H PRN PRN PRN Reason: Nausea Oxycodone HCl (Oxyir) 5 - 10 mg PO Q4H PRN PRN PRN Reason: Pain Score 4-10/10 Senna/Docusate Sodium (Senokot-S, Angela-Colace) 1 - 2 tablet PO DAILY PRN PRN PRN Reason: Constipation Simethicone (Mylicon) 80 mg PO PCHS PRN PRN Reason: Indigestion/Stomach pain Sodium Chloride () 5 - 15 ml IV UD PRN PRN Reason: SALINE FLUSH Medical Necessity - Tobacco Use Smoking Status: Never smoker Assessment/Plan All Active Problems (Last Reviewed 01/17/19 @ 10:07 by Toyin Loja) Non-reactive NST (non-stress test) (Acute) Elevated blood pressure affecting in third trimester, antepartum (Acute) Rubella non-immune status, antepartum (Acute) Chlamydia infection affecting (Acute) (Acute) Supervision of normal first (Acute) Abnormal EKG (Resolved) Palpitations (Resolved) Subchorionic hemorrhage in first trimester (Resolved) s/p PPD # 1 1. routine post delivery care 2. breast feeding- support given 3. rh positive 4. rubella non immune give MMR
--- NOTE | 2019-01-19 10:45 | DCINST_ITS ---
Discharge Diet: No Restrictions Discharge Activity: Return to Normal Activity, May not drive while taking narcotic pain medications., May Shower May resume sexual activity in: 4-6 weeks Call your doctor if your incision/area has: Continuous Slow Oozing, Sudden Increased Bleeding, Increased Pain/ Swelling, Increased Redness, Foul Smelling Discharge Additional Instructions: If you experience any of the following, contact your healthcare provider. * Bleeding that soaks a pad every hour for 2 hours * Fever 100.4 or higher * Unrelieved incision or abdominal pain * Swelling, redness, discharge or bleeding from your incision or episiotomy site * Your incision begins to separate * Problems urinating (including inability to urinate or burning while urinating). * Visual changes * Severe headache * Flu-like symptoms * Pain or redness in one of both of your breasts * Pain, warmth, tenderness or swelling in your legs, especially the calf area * Frequent nausea and vomiting * Symptoms of depression or anxiety If you experience any of the following, call 911 or go to the nearest Emergency Room. * Chest pain * Problems breathing * Seizure activity * Partial or complete paralysis of a body part, slurred speech, weakness or drooping of the face, or a sudden inability to walk or hold your balance Allergies/Adverse Reactions: Allergies No Known Allergies Allergy (Verified 01/17/19 10:06) Medications to take at Discharge vitamin,calcium,egrwkgry-bgcd-fwpwk acid tablet 1 tab PO DAILY 10/08/18 promethazine 12.5 mg tablet 12.5 mg PO Q6H PRN 10/10/18 Please Follow Up With: Chinyere Su MD - [phone] When: Call to make an appointment with your doctor in 6 weeks. If you had elevated Blood pressure or 4th degree laceration you will need to be seen in 2 weeks. Primary Care Physician: Marlyn Hi NP-C [Primary Care Provider] - Test Results: Test results from this visit will be discussed in further detail at your follow- up appointment, if applicable.
--- NOTE | 2019-01-19 10:45 | PCM.DCVAG ---
Discharge Diet: No Restrictions Discharge Activity: Return to Normal Activity, May not drive while taking narcotic pain medications., May Shower May resume sexual activity in: 4-6 weeks Call your doctor if your incision/area has: Continuous Slow Oozing, Sudden Increased Bleeding, Increased Pain/ Swelling, Increased Redness, Foul Smelling Discharge Additional Instructions: If you experience any of the following, contact your healthcare provider. Bleeding that soaks a pad every hour for 2 hours Fever 100.4 or higher Unrelieved incision or abdominal pain Swelling, redness, discharge or bleeding from your incision or episiotomy site Your incision begins to separate Problems urinating (including inability to urinate or burning while urinating). Visual changes Severe headache Flu-like symptoms Pain or redness in one of both of your breasts Pain, warmth, tenderness or swelling in your legs, especially the calf area Frequent nausea and vomiting Symptoms of depression or anxiety If you experience any of the following, call 911 or go to the nearest Emergency Room. Chest pain Problems breathing Seizure activity Partial or complete paralysis of a body part, slurred speech, weakness or drooping of the face, or a sudden inability to walk or hold your balance Allergies/Adverse Reactions: Allergies No Known Allergies Allergy (Verified 01/17/19 10:06) Medications to take at Discharge vitamin,calcium,iwrtqrny-fdvh-mfnea acid tablet 1 tab PO DAILY 10/08/18 promethazine 12.5 mg tablet 12.5 mg PO Q6H PRN 10/10/18 Please Follow Up With: Chinyere Su MD - [phone] When: Call to make an appointment with your doctor in 6 weeks. If you had elevated Blood pressure or 4th degree laceration you will need to be seen in 2 weeks. Primary Care Physician: Marlyn Hi NP-C [Primary Care Provider] - Test Results: Test results from this visit will be discussed in further detail at your follow-up appointment, if applicable.
[2019-01-19 11:14] VITALS: BP 126/74; PULSE 88; RESP 16; TEMP 36.5; O2SAT 99
== END 2019-01-19 11:35 | disposition home or self-care (01) | DRG 560 ==
LOC: OBT 12:26 → WP 12:26
PROVIDERS: Admitting Provider Obstetrics & Gynecology; Family Provider Nurse Practitioner Family; PCP Nurse Practitioner Family; Referring Provider Obstetrics & Gynecology; Visit Provider Obstetrics & Gynecology
DX: O70.0 First degree perineal laceration during delivery (principal); Z3A.39 39 weeks gestation of pregnancy; Z37.0 Single live birth
CPT/HCPCS: 36415; 59025; 59050; 82565; 82570; 84156; 84450; 84460; 84550; 85025; 85027; 85610; 85730; 86850; 86900; 86901; 99218; J7120; A4216; G0378; J2405

== ENCOUNTER → 2019-04-15 14:12 | Outpatient (CLI) | payer MEDICAID, SELFPAY ==
[2019-04-15 13:48] VITALS: BMI 29.7
[2019-04-15 14:43] LABS: Absolute Lymphocyte Count 2.06 X10^3/uL (0.83-4.51); Absolute Neutrophil Count 3.5 X10^3/uL (2.0-7.7); Basophil# 0.04 X10^3/uL; Basophil% 0.6 % (0-1); Eosinophil# 0.12 X10^3/uL; Eosinophils% 1.9 % (0-5); Hemoglobin 14.2 g/dL (12.0-15.0); Lymphocyte # 2.06 X10^3/ul (4.0); Lymphocyte % 32.9 % (19-41); Mean Corpuscular Hgb 29.9 pg (27.0-32.0); Mean Corpuscular Volume 90.5 fL (81-99); NRBC Flagged by Analyzer 0 % (0-5); Neutrophil # 3.52 X10^3/uL (2.7-7.7); Neutrophil % 56.3 % (47-70); Platelet Count 271 K/mm3 (150-450); RBC Distribution Width CV 12.1 % (11.6-14.6); Red Blood Count 4.75 M/mm3 (4.2-5.4); White Blood Count 6.3 K/mm3 (4.4-11.0)
[2019-04-15 14:55] LABS: T4 Free Direct 0.94 ng/dL (0.76-1.46); Thyroid Stim Hormone (TSH) 1.89 uIU/mL (0.358-3.74)
== END ==
PROVIDERS: PCP Nurse Practitioner Family; Referring Provider Obstetrics & Gynecology; Visit Provider Obstetrics & Gynecology
DX: R42 Dizziness and giddiness (principal)
CPT/HCPCS: 36415; 84439; 84443; 85025

== ENCOUNTER → 2019-04-25 11:18 | Outpatient (CLI) | payer MEDICAID, SELFPAY ==
[2019-04-17 13:23] VITALS: BMI 25.5
--- NOTE | 2019-04-25 13:02 | STRESSREP_ITS ---
Stress Test Report Date: 04-25-2019 Procedure: Exercise tolerance test Indications: Chest pain Consent: Per the patient Procedure: The patient exercised on a Keith protocol for 7 minutes and 10 seconds completing completing Stage II and 1 minute and 10 seconds of Stage III achieving a peak heart rate of 187 bpm (93 % predicted maximal heart rate) with a peak blood pressure 146/62 mmHg and a peak MET capacity of approximately 8 mET's. The baseline ECG demonstrated normal sinus rhythm. The peak exercise ECG demonstrated no obvious ECG changes. [There were no cardiac dysrhythmias pretest, during exercise, or recovery]. The functional capacity was considered average. The patient had no complaint of chest discomfort during exercise or recovery. The examination was discontinued secondary to dyspnea and fatigue. Impression: 1. Technically adequate (percent predicted maximal heart rate greater than 85%) exercise tolerance test 2. Peak exercise ECG with no obvious ECG changes 3. [There were no cardiac dysrhythmias during exercise or recovery] This note was generated with [employer] software. It may contain incorrect words, spelling, and punctuation that were not noted in checking the note before signing.
== END ==
PROVIDERS: PCP Nurse Practitioner Family; Referring Provider Internal Medicine Cardiovascular Disease; Visit Provider Internal Medicine Cardiovascular Disease
DX: R07.9 Chest pain, unspecified (principal); R06.02 Shortness of breath; R42 Dizziness and giddiness
CPT/HCPCS: 93017

== ENCOUNTER → 2019-07-17 | Outpatient (CLI) | payer MEDICAID, SELFPAY ==
[2019-07-17 14:33] VITALS: BMI 29.7
== END | disposition home or self-care (01) ==
PROVIDERS: PCP Nurse Practitioner Family; Visit Provider Nurse Practitioner Women's Health
DX: N39.0 Urinary tract infection, site not specified (principal); N94.9 Unspecified condition associated with female genital organs and menstrual cycle
CPT/HCPCS: 87070; 87086; 87205

== ENCOUNTER → 2022-12-15 | Outpatient (CLI) | payer MEDICAID, SELFPAY ==
[2022-12-20 18:21] LABS: HPV Reflexed? NOT INDICATED
== END | disposition home or self-care (01) ==
LOC: LABSPEC 16:24
PROVIDERS: PCP Nurse Practitioner Family; Referring Provider Advanced Practice Midwife; Visit Provider Advanced Practice Midwife
DX: Z12.4 Encounter for screening for malignant neoplasm of cervix (principal)
CPT/HCPCS: 88175; G0145

== ENCOUNTER → 2024-05-29 | Outpatient (CLI) | payer OTHER, BC, SELFPAY ==
[2024-05-29 15:57] LABS: Absolute Lymphocyte Count 2.35 X10^3/uL (0.83-4.51); Absolute Neutrophil Count 4.3 X10^3/uL (2.0-7.7); Basophil# 0.05 X10^3/uL; Basophil% 0.7 % (0-1); Eosinophil# 0.17 X10^3/uL; Eosinophils% 2.3 % (0-5); Hematocrit 38.9 % (37-47); Hemoglobin 12.7 g/dL (12.0-15.0); Lymphocyte # 2.35 X10^3/ul (0.83-4.51); Lymphocyte % 31.7 % (19-41); Mean Corp Hgb Conc 32.6 g/dL (32-36); Mean Corpuscular Volume 85.9 fL (81-99); Mean Platelet Vol. 10.2 fl (6.2-12.0); Monocyte% 6.7 % (0-10); NRBC Flagged by Analyzer 0 % (0-5); Neutrophil # 4.31 X10^3/uL (2.7-7.7); Neutrophil % 58.2 % (47-70); Platelet Count 289 K/mm3 (150-450); RBC Distribution Width CV 13.3 % (11.6-14.6); RBC Distribution Width SD 41.1 fl (35.1-43.9); Red Blood Count 4.53 M/mm3 (4.2-5.4); White Blood Count 7.4 K/mm3 (4.4-11.0)
[2024-05-29 16:34] LABS: ALB/GLOB Ratio 1.5 RATIO (0.9-2.4); AST(SGOT) 17 U/L (<=31); Alanine Aminotransfer ALT/SGPT 17 U/L (<=34); Albumin, Serum 4.4 g/dL (3.5-5.0); Alkaline Phosphatase 49 U/L (35-104); Anion Gap 11 (5-15); BUN 11 mg/dL (4-19); BUN/Creat Ratio 11.8 RATIO (10-20); Calcium,Total 9.8 mg/dL (7.6-11.0); Carbon Dioxide 26.3 mmol/L (21.0-32.0); Chloride 102 mmol/L (98-108); Creatinine, Serum 0.92 mg/dL (0.70-1.20); EST Glomerular Filtration Rate 88 (>60); Free T3 2.7 pg/mL (2.18-3.98); Glucose 89 mg/dL (70-99); Potassium 3.8 mmol/L (3.3-5.1); Protein, Total 7.5 g/dL (5.9-8.4); Sodium Level 139 mmol/L (133-145); Total Bilirubin 0.17 mg/dL (0.00-1.30); Vitamin D,25 Hydroxy 29.2 ng/mL (30-100)
== END | disposition home or self-care (01) ==
LOC: BWCLAB 14:25
PROVIDERS: PCP Nurse Practitioner Family; Referring Provider Nurse Practitioner Family; Visit Provider Nurse Practitioner Family
DX: Z31.9 Encounter for procreative management, unspecified (principal)
CPT/HCPCS: 36415; 80053; 82306; 84439; 84443; 84481; 85025